=== PATIENT | male | born 1985 | race Caucasian/White ===

== ENCOUNTER 2025-04-13 10:38 | Emergency (ER) | payer OTHER, SELFPAY ==
[2025-04-13 10:49] VITALS: BP 117/86
[2025-04-13 11:24] LABS: Urine Character Clear (Clear)
[2025-04-13 11:31] LABS: Urine Squamous Cell 0-2 /LPF (Few)
[2025-04-13 11:32] LABS: Urine Red Blood Cell 0-2 /HPF (0-2); Urine White Cell 0-2 /HPF (0-5)
[2025-04-13 12:01] VITALS: BP 136/81; BMI 25.9
--- NOTE | 2025-04-13 13:08 | ED.GENMED ---
History of Present Illness
General
Chief Complaint: Male Genito-Urinary Symptoms
Source: patient
Exam Limitations: none
Time Seen by Provider: 04/13/25 11:44
History of Present Illness
History of Present Illness:
See MDM
Past History
Past History
ED Past Medical History: None
ED Past Surgical History: None
Social History
Tobacco: Non-smoker
Alcohol: None
Phy Exam
Physical Exam
Physical Exam:
See MDM
Course
Orders/Labs/Results
Orders:
Orders
04/13/25 10:48
Scrotum US [US Scrotum] Urgent
Comment:
Reason For Exam: right groin/testicle pain
04/13/25 10:54
Urinalysis Reflex To Culture Urgent
Date Specimen was Collected: 04/13/25
Time Specimen was Collected: 10:49
Urine Microscopic Reflex Cult Urgent
Chlamydia/GC by PCR Urgent
ROXANNE Source: U
Specimen Description:
Source:: URINE
Date Specimen was Collected: 04/13/25
Time Specimen was Collected: 10:49
Comment: Add on per Syed Escalona, DO
04/13/25 13:03
Add On- LAB Urgent
Tests Added?: Urine gonorrhea and chlamydia
04/13/25 13:08
LevoFLOXacin [Levaquin] 500 mg PO NOW STA
Abnormal Lab Results
04/13/25
10:54
Ur Occult Blood Reflex 1+ A
(Negative)
Vital Signs
Initial and Last Documented VS:
Initial Vital Signs
Temp Pulse Resp BP Pulse Ox
98.9 F 75 16 117/86 98
04/13/25 10:49 04/13/25 10:49 04/13/25 10:49 04/13/25 10:49 04/13/25 10:49
Last Documented Vital Signs
Temp Pulse Resp BP Pulse Ox
97.6 F 76 16 136/81 99
04/13/25 12:01 04/13/25 12:01 04/13/25 12:01 04/13/25 12:01 04/13/25 13:10
MDM/Problems Addressed
Differential Diagnosis Includes:
Note:
CHIEF COMPLAINT(S)
Scrotal pain, specifically in the right testicle.
HISTORY OF PRESENT ILLNESS
The patient is a 40-year-old male who presents with right-sided scrotal pain that he describes as localized primarily to the right testicle and sometimes slightly above it. He reports that the pain comes in brief waves, persisting for a few seconds
at a time, then subsiding before returning minutes later. This symptom started several months ago. The patient denies any penile discharge, pain during urination, or recent sexual activity due to being for over ten years and having young
children. An initial ultrasound reveals no testicular torsion but indicates inflammation in the epididymis. There is no evidence of hernia or testicular mass. The patient also has a known varicocele on the left side. He notes an intermittent sense
of discomfort in his right leg and lower abdomen. Lab tests confirmed no evidence of a urinary tract infection, and there is no penile discharge.
CHRONIC MEDICAL CONDITIONS SIGNIFICANTLY AFFECTING CARE
None indicated.
PHYSICAL EXAM
General: Alert, no acute distress.
Skin: Warm, dry.
Head: Normocephalic, atraumatic
Neck: Appears supple, trachea midline.
Eyes, Ears, Nose, Mouth, and Throat: Moist mucous membranes
Cardiovascular: No signs of cyanosis
Respiratory: Respirations are non-labored.
Abdomen: Non-distended
: Mild tenderness to right epididymis. Cremasteric reflex intact. No tenderness to palpation of testicle. No skin changes
Musculoskeletal: No deformities
Neurological: No focal neurological deficit observed.
Psychiatric: Cooperative, appropriate mood and affect.
PLAN
The patient will be treated with antibiotics for epididymitis, presumed bacterial in origin and non-STD related due to the patients sexual history. A dose of antibiotics will be administered in the emergency department. The patient will be advised
to wear supportive briefs to alleviate symptoms. A referral to a urologist will be provided for further evaluation if symptoms persist. Gonorrhea and chlamydia testing will be added to the urine sample to rule out any infections. The patient has
been reassured that there are no signs of testicular cancer from the ultrasound findings.
DIFFERENTIAL DIAGNOSIS
The Differential Diagnosis includes, in no particular order and is not limited to:
1. Epididymitis
2. Testicular torsion (ruled out by ultrasound)
3. Inguinal hernia (no evidence on examination)
4. Varicocele
5. Epididymal cyst
6. Orchitis
7. Prostate-related infection
8. Hydrocele
9. Non-infectious epididymitis due to strain or trauma
10. Referred pain from lumbar spine conditions
Disposition:
SUMMARY OF ENCOUNTER
The patient, a 40-year-old male, presented to the emergency department with right-sided scrotal pain. An ultrasound ruled out testicular torsion but indicated epididymitis. The patient denied any recent sexual activity, correlating with low
suspicion for sexually transmitted infections. A urinalysis showed no signs of infection, and gonorrhea and chlamydia tests were added to further rule out these infections. The decision was made to treat the patient with antibiotics due to suspected
epididymitis of bacterial origin, presumed non-STD related.
DISPOSITION
The patient feels comfortable being discharged home.
ASSESSMENT
Epididymitis, bacterial in origin, likely non-STD related based on history and clinical findings.
EMERGENCY TREATMENTS ADMINISTERED
Levofloxacin was administered.
PLAN
The patient was advised to initiate antibiotic therapy with levofloxacin. A follow-up with a primary care physician and a urologist was recommended if symptoms persist. Supportive care including wearing supportive briefs for comfort was advised.
Further testing for gonorrhea and chlamydia was conducted for confirmation.
INDEPENDENT REVIEW OF LABS AND INTERPRETATION OF TESTS
My independent review of urinalysis is normal, indicating no signs of urinary tract infection.
My independent interpretation of the ultrasound shows no evidence of testicular torsion but reveals inflammation consistent with epididymitis.
PATIENT EDUCATION AND COUNSELING
The patient was educated on the nature of epididymitis, the importance of completing the antibiotic course, and the need to monitor symptoms and follow-up with healthcare providers if symptoms do not improve. The potential causes of non-STD related
epididymitis were discussed, reassuring him about the low risk of sexually transmitted infections based on his history.
FOLLOW-UP INSTRUCTIONS
The patient is advised to follow up with the primary care physician soon and with a urologist if symptoms persist.
MEDICATION RECONCILIATION
Levofloxacin was administered in the ED and prescribed for continued outpatient treatment.
MEDICAL DECISION MAKING
-Complexity of Data Reviewed:
DDx includes:
1. Epididymitis
2. Testicular torsion (ruled out by ultrasound)
3. Inguinal hernia (no evidence on examination)
4. Varicocele
5. Epididymal cyst
6. Orchitis
7. Prostate-related infection
8. Hydrocele
9. Non-infectious epididymitis due to strain or trauma
10. Referred pain from lumbar spine conditions
-Data:
Category 1
My independent interpretation of ultrasound confirmed no torsion and indicated epididymitis.
Urinalysis was reviewed, showing no infection.
Category 3
Discussed management with the patient, ensuring understanding and comfort with home treatment and follow-up care.
-Risk:
Consideration of Admission/Observation: Escalation of care including admission/observation was considered given the complexity and risk of the patients presenting complaint, exam findings, and their underlying comorbidities. However, ultimately I
feel the patient is safe for outpatient management with close follow-up. Reasoning: Work-up reassuring, does not reveal any acute life/organ-threatening processes, patients symptoms well-controlled upon reevaluation, reexamination is reassuring,
vitals are stable, patient agreeable with discharge, reliable for follow-up.
DIAGNOSIS
Epididymitis, unspecified (ICD-10: N45.90)
*Pulse Oximetry
SaO2: 99
Oxygen Mode of Delivery: Room air
Patient hypoxic: no
*Critical Care Note
Total Time (30-74mins, 75-104mins- exclusive of procedures): Not Applicable
ED Attending Note
-
Portions of this chart may have been created with voice recognition software.� Occasional wrong word or��sound alike� substitutions may have occurred due to the inherent limitations of voice recognition software.
Discharge Plan
Departure
Patient Disposition: Home (Routine Discharge)
Date of Disposition: 04/13/25
Time of Disposition: 13:47
Patient with high blood pressure during this ER visit?: No
Discharge Problem:
Epididymitis
Prescriptions:
New
levofloxacin 500 mg tablet
500 mg PO DAILY 9 Days Qty: 9 0RF
Referrals:
Young Taylor MD [Active, Urology]
NONE,* [Family Provider, Internal Medicine]
Activity Restrictions/Additional Instructions:
Please return for any worsening symptoms.
You may return at any time if you have further concerns.
Please follow up with your doctor at the first available appointment, preferably this week.
Please make an appoint with urologist for persistent symptoms.
Thank you for choosing [facility].
Interventions
Interventions:
*Risk Screen - Suicide Last Done: 04/13/25 10:49
*General Assessment Last Done: 04/13/25 10:49
*Neglect/Abuse Screening Last Done: 04/13/25 10:49
*ED- Fall Risk Assessment Last Done: 04/13/25 10:49
*ED COVID-19 Vaccine History Last Done: 04/13/25 10:49
*ED Influenza Vaccine History Last Done: 04/13/25 10:49
*Nursing Disposition Last Done: 04/13/25 13:56
ED-Male Genitourinary Assessment Last Done: 04/13/25 12:01
Discharge Date and Time
Discharge Date/Time: 04/13/25 13:57
Print Language: BOLIVIAN
[2025-04-13] MEDS: LEVAQUIN 500 MG PO (13:54)
== END 2025-04-13 13:57 | disposition home or self-care (01) ==
LOC: EMR 10:38
PROVIDERS: EMERGENCY PHYSICIAN Student in an Organized Health Care Education/Training Program
DX: N45.1 Epididymitis (principal); Z11.3 Encounter for screening for infections with a predominantly sexual mode of transmission; Z11.8 Encounter for screening for other infectious and parasitic diseases
CPT/HCPCS: 99284; 76870; 81003; 81015; 87491; 87591; 93976